=== PATIENT | female | born 1935 | race Caucasian/White ===

== ENCOUNTER → 2018-02-06 | Outpatient (CLI) | payer MEDICARE | END | disposition home or self-care (01) | LOC: CFH 09:12 | PROVIDERS: ATTEND Nurse Practitioner Family | DX: R13.10 Dysphagia, unspecified (principal) | CPT/HCPCS: 74241 ==

== ENCOUNTER 2018-03-30 16:13 | Inpatient (IN) | payer MEDICARE ==
[~2018-03-30] VITALS: Ht 160 cm; Wt 64.6 kg
[2018-03-30] MEDS ORDERED: SIMV10TA3 PO (16:31)
[2018-03-30] MEDS ORDERED: RANI150T4 PO (16:31)
[2018-03-30] MEDS ORDERED: VALS80TA3 PO (16:31)
[2018-03-30] MEDS ORDERED: RALO60TA PO (16:31)
[2018-03-30 17:15] LABS: BASOPHILS # (AUTO) 0.03 x10^3/uL (0-0.1); BASOPHILS % (AUTO) 1 % (0-1); EOSINOPHILS # (AUTO) 0.16 x10^3/uL (0-0.4); EOSINOPHILS % (AUTO) 2 % (1-7); LYMPHOCYTES # (AUTO) 2.09 x10^3/uL (1-3.4); LYMPHOCYTES % (AUTO) 29 % (22-44); MD NO; MEAN CORPUSCULAR VOLUME 91.3 fL (80-100); MEAN PLATELET VOLUME 8.4 fL (7.4-10.4); MONOCYTES # (AUTO) 0.55 x10^3/uL (0.2-0.8); MONOCYTES % (AUTO) 8 % (2-9); NEUTROPHILS # (AUTO) 4.45 x10^3/uL (1.8-6.8); NEUTROPHILS % (AUTO) 61 % (42-75); PLATELET COUNT 287 x10^3/uL (130-400); RED BLOOD COUNT 4.73 x10^6/uL (3.82-5.3); RED CELL DISTRIBUTION WIDTH 15.3 % (9.6-15.2)
[2018-03-30 17:17] LABS: ALBUMIN 3.3 g/dL (3.4-5.0); ANION GAP 8 mmol/L (5-15); CALCIUM 9.1 mg/dL (8.5-10.1); CHLORIDE 112 mmol/L (98-107); CREATININE 0.57 mg/dL (0.55-1.02)
[2018-03-30 19:36] LABS: MICROSCOPIC AUTO
[2018-03-30 19:39] LABS: CULTURE INDICATED? YES
[2018-03-30 20:01] VITALS: BP 153/79
[2018-03-30] MEDS ORDERED: D5%-0.45NACL+KCL 20MEQ 1,000 ML IV SCH (20:09)
[2018-03-30] MEDS ORDERED: ENOXAPARIN 40 MG/0.4 ML SQ SCH (20:30)
[2018-03-30] MEDS ORDERED: DOCUSATE 100 MG CAPSULE PO PRN (20:30)
[2018-03-30] MEDS ORDERED: LABETALOL 5MG/ML, 20ML IVPush PRN (20:30)
[2018-03-30] MEDS ORDERED: ONDANSETRON 2MG/ML, 2ML IVPush PRN (20:30)
[2018-03-30] MEDS ORDERED: morphine SULFATE 10 MG/ML, 1ML IVPush PRN (20:30)
[2018-03-30] MEDS ORDERED: ONDANSETRON ODT 4 MG PO PRN (20:30)
[2018-03-30] MEDS ORDERED: TRAZODONE 50MG TABLET PO PRN (20:30)
[2018-03-30] MEDS ORDERED: ACETAMINOPHEN 325 MG TABLET PO PRN (20:30)
[2018-03-30] MEDS ORDERED: FAMOTIDINE 20 MG TABLET PO SCH (21:00)
[2018-03-30] MEDS ORDERED: SIMVASTATIN 10 MG TABLET PO SCH (21:00)
[2018-03-31] MEDS ORDERED: ZIPRASIDONE 20 MG INJ IM PRN (03:00)
[2018-03-31 03:38] VITALS: BP 143/84
[2018-03-31 09:00] VITALS: BP 140/91
[2018-03-31] MEDS ORDERED: RALOXIFENE 60 MG TABLET PO SCH (09:00)
[2018-03-31] MEDS ORDERED: VALSARTAN 80 MG TABLET PO SCH (09:00)
[2018-03-31] MEDS ORDERED: SENNA/DOCUSATE TABLET PO SCH (09:00)
[2018-03-31 14:53] VITALS: BP 120/71
[2018-03-31] MEDS ORDERED: ACET-1600 PO (15:32)
[2018-03-31] MEDS ORDERED: PNEUMOCOCCAL 23 VACCINE IM-VACC ONE (17:00)
== END 2018-03-31 17:55 | disposition home or self-care (01) | DRG 536 ==
LOC: ED 17:25 → EDIP 18:09 → 4NOR 19:55 → OBSVTOIN 20:09 → DCLOUNGE 03-31 15:30 → 4NOR 03-31 16:12
PROVIDERS: ADMIT Internal Medicine; ATTEND Internal Medicine
DX: S32.592A Other specified fracture of left pubis, initial encounter for closed fracture (principal); F03.90 Unspecified dementia, unspecified severity, without behavioral disturbance, psychotic disturbance, mood disturbance, and anxiety; E78.5 Hyperlipidemia, unspecified; I10 Essential (primary) hypertension; K21.9 Gastro-esophageal reflux disease without esophagitis; M81.0 Age-related osteoporosis without current pathological fracture; Z96.642 Presence of left artificial hip joint; W18.30XA Fall on same level, unspecified, initial encounter; K59.00 Constipation, unspecified; Y93.89 Activity, other specified; Y92.89 Other specified places as the place of occurrence of the external cause; Y99.8 Other external cause status; Z79.899 Other long term (current) drug therapy; Z81.8 Family history of other mental and behavioral disorders
CPT/HCPCS: 36415; 71045; 80048; 81001; 82040; 85025; 87086; G0378; J1650; J3486; J3480

== ENCOUNTER 2018-06-16 00:26 | Emergency (ER) | payer MEDICARE ==
[~2018-06-16] VITALS: Ht 160 cm; Wt 65.0 kg
[~2018-06-16 00:26] MED LIST: ACET-1600 PO; RALO60TA PO; RANI150T4 PO; SIMV10TA3 PO; VALS80TA3 PO
[2018-06-16] MEDS ORDERED: IBUPROFEN 200 MG TABLET PO ONE (02:00)
[2018-06-16] MEDS ORDERED: IBUPROFEN 200 MG TABLET ONE (02:05)
[2018-06-16 02:55] VITALS: BP 124/56
== END 2018-06-16 03:59 | disposition home or self-care (01) ==
LOC: ED 02:24
DX: S16.1XXA Strain of muscle, fascia and tendon at neck level, initial encounter (principal); S39.012A Strain of muscle, fascia and tendon of lower back, initial encounter; S29.012A Strain of muscle and tendon of back wall of thorax, initial encounter; G89.11 Acute pain due to trauma; R51 Headache; M25.521 Pain in right elbow; M79.631 Pain in right forearm; M25.531 Pain in right wrist; M25.522 Pain in left elbow; M25.532 Pain in left wrist; W01.0XXA Fall on same level from slipping, tripping and stumbling without subsequent striking against object, initial encounter; Y93.89 Activity, other specified; Y92.098 Other place in other non-institutional residence as the place of occurrence of the external cause; Y99.8 Other external cause status
CPT/HCPCS: 70450; 72072; 72110; 72125; 99284